=== PATIENT | female | born 1945 | race Caucasian/White ===

== ENCOUNTER 2017-01-07 05:18 | Inpatient (IN) | payer MEDICARE, OTHER ==
[~2017-01-07 05:18] MED LIST: BENAZEPRIL HCL5 M2 PO; CALCIUM CITRAT250 M1 PO; MULTIVITAMINS1 EAC6 PO; NORVASC10 M2 PO; TYLENOL EXTRA500 M1 PO; VITAMIN D31000 UNI3 PO
[2017-01-08 06:31] LABS: ANION GAP 12 mmol/L (0-20); BLOOD UREA NITROGEN 13 mg/dl (6-24); CALCIUM 8.4 mg/dl (8.5-10.5); CARBON DIOXIDE-VENOUS 26 mmol/L (22-32); CHLORIDE 106 mmol/l (96-110); CREATININE 0.75 mg/dl (0.50-1.10); GLUCOSE 106 mg/dL (70-110); SODIUM 140 mmol/L (135-145); eGFR VALUE FOR BLACK >90 mL/Min
[2017-01-09] MEDS ORDERED: ROBAXIN-750750 M1 PO (11:20)
[2017-01-09] MEDS ORDERED: NORCO 5-325 TA1 EACH PO (11:21)
[2017-01-09] MEDS ORDERED: TYLENOL325 M2 PO (11:26)
[2017-01-09] MEDS ORDERED: SENOKOT-S TABL1 EACH PO (11:30)
== END 2017-01-09 12:15 | DRG 460 ==
LOC: SHSB 05:18 → ORE 07:17 → PACU 11:07 → 5EA 12:30
PROVIDERS: ADMIT Neurological Surgery
PROC: 0SG10A1 (ICD-10-PCS; principal; 2017-01-07)
PROC: 0SG1071 Fusion of 2 or more Lumbar Vertebral Joints with Autologous Tissue Substitute, Posterior Approach, Posterior Column, Open Approach (ICD-10-PCS; 2017-01-07)
PROC: 0SG00K1 Fusion of Lumbar Vertebral Joint with Nonautologous Tissue Substitute, Posterior Approach, Posterior Column, Open Approach (ICD-10-PCS; 2017-01-07)
PROC: 0QB20ZZ Excision of Right Pelvic Bone, Open Approach (ICD-10-PCS; 2017-01-07)
DX: M43.16 Spondylolisthesis, lumbar region (principal); I10 Essential (primary) hypertension; M48.06 Spinal stenosis, lumbar region; M54.16 Radiculopathy, lumbar region
CPT/HCPCS: C1713; J0690; J1170; J2800; J3010; J3370